=== PATIENT | male | born 1960 | race Two or more races ===

== ENCOUNTER 2022-12-06 10:17 | Inpatient (IN) | payer OTHER ==
[2022-12-06] MEDS ORDERED: ACETAMINOPHEN 1000 MG/100 ML BAG IVPB ONE (11:49)
[2022-12-06] MEDS ORDERED: methylPREDNISolone NA SUCC 125 MG/2 ML VIAL IVPUSH ONE (11:50)
[2022-12-06] MEDS ORDERED: ALBUTEROL SO4 2.5/IPRATROPIUM 0.5 INH SOL 3 ML VIAL.NEB. NEB ONE (12:06)
[2022-12-06] MEDS ORDERED: ACETAMINOPHEN INJECTION 100 ML IVPB ONE (12:06)
[2022-12-06] MEDS ORDERED: methylPREDNISolone NA SUCC 125 MG/2 ML VIAL ONE (12:07)
[2022-12-06] MEDS: ALBUTEROL SO4 2.5/IPRATROPIUM 0.5 INH SOL 3 ML VIAL.NEB. NEB SCH (12:23)
[2022-12-06 12:37] LABS: VENOUS BASE EXCESS -1.1 mmol/L (-2-2); VENOUS O2 SATURATION 40.7 % (70-80); VENOUS PH 7.37 (7.310-7.410)
[2022-12-06 12:39] LABS: BASO % 0.9 % (0-2.0); EOS % 3.9 % (0-4.5); HEMATOCRIT 47.3 % (35.4-49); HEMOGLOBIN 16.1 GM/dL (11.7-16.9); MCHC 34.2 g/dl (32.0-35.9); MEAN CELL VOLUME 90.8 fl (80-96); MEAN PLT VOLUME 7.8 fl (7.5-11.1); MONO % 8.5 % (3.8-10.2); NEUT % 50.7 % (42.8-82.8); PLATELET COUNT 213 10^3/uL (134-434); RDW 13.4 % (11.9-15.9); WHITE BLOOD COUNT 4.8 K/mm3 (4.0-10.0)
[2022-12-06 12:46] LABS: INR 1.25 (0.83-1.09); PROTHROMBIN TIME (PATIENT) 14.5 SEC (9.7-13.0)
[2022-12-06 12:48] LABS: ACTIVATED PTT 30.7 SECONDS (25.2-36.5)
[2022-12-06 12:57] LABS: POTASSIUM 5.3 mmol/L (3.5-5.1)
[2022-12-06 12:59] LABS: CALCIUM 8.5 mg/dL (8.5-10.1)
[2022-12-06 13:00] LABS: BLOOD UREA NITROGEN 13.5 mg/dL (7-18)
[2022-12-06 13:03] LABS: CREATININE 0.8 mg/dL (0.55-1.3)
[2022-12-06 13:04] LABS: BILIRUBIN,TOTAL 0.7 mg/dL (0.2-1); TOT PROT 9.4 g/dl (6.4-8.2)
[2022-12-06 13:07] LABS: N-TERMINAL BNP 235.7 pg/ml (5-125)
[2022-12-06] MEDS ORDERED: morphine CARPU-JECT 4 MG/1 ML DISP.SYRIN IVPUSH ONE (15:35)
[2022-12-06] MEDS ORDERED: morphine SULFATE 4 MG/ML VIAL ONE (15:41)
[2022-12-06 16:54] LABS: URINE APPEARANCE CLEAR; URINE BILIRUBIN NEGATIVE (NEGATIVE); URINE COLOR DK YELLOW; URINE GLUCOSE (UA) NEGATIVE (NEGATIVE); URINE KETONE 40 mg/dl (NEGATIVE)
[2022-12-06 16:55] LABS: HYALINE CASTS 0.37 /uL (0-3.1); PH,URINE 5.5 (5.0-8.0); URINE BACTERIA 1.9 /uL (0-1359); URINE LEUK ESTERASE NEGATIVE (NEGATIVE); URINE NITRITE NEGATIVE (NEGATIVE); URINE PROTEIN 30 (NEGATIVE); URINE RBC 20.7 /uL (0-23.9); URINE WBC 6.7 /uL (0-25.8)
[2022-12-06] MEDS ORDERED: morphine CARPU-JECT 2 MG/1 ML DISP.SYRIN IVPUSH ONE (19:16)
[2022-12-06] MEDS ORDERED: ALBUTEROL SO4 2.5/IPRATROPIUM 0.5 INH SOL 3 ML VIAL.NEB. NEB PRN (22:28)
[2022-12-06] MEDS ORDERED: ALBUTEROL SO4 2.5/IPRATROPIUM 0.5 INH SOL 3 ML VIAL.NEB. NEB SCH (22:30)
[2022-12-06 23:59] LABS: POTASSIUM 4.2 mmol/L (3.5-5.1)
[2022-12-07] LABS: BLOOD UREA NITROGEN 16.2 mg/dL (7-18); CALCIUM 8.5 mg/dL (8.5-10.1)
[2022-12-07 00:04] LABS: CREATININE 0.9 mg/dL (0.55-1.3)
[2022-12-07 00:08] LABS: N-TERMINAL BNP 353.2 pg/ml (5-125)
[2022-12-07] MEDS ORDERED: methylPREDNISolone NA SUCC 40 MG/1 ML VIAL IVPUSH SCH (02:00)
[2022-12-07] MEDS: NICOTINE 14 MG/24 HOURS TOPICAL PATCH TD SCH (09:16)
[2022-12-07 09:31] LABS: BASO % 0.1 % (0-2.0); HEMATOCRIT 42.2 % (35.4-49); HEMOGLOBIN 14.3 GM/dL (11.7-16.9); LYMPH % 9.6 % (8-40); MCH 30.8 pg (25.7-33.7); MEAN CELL VOLUME 90.5 fl (80-96); MEAN PLT VOLUME 8.1 fl (7.5-11.1); MONO % 4.3 % (3.8-10.2); PLATELET COUNT 228 10^3/uL (134-434); RBC 4.66 M/mm3 (4.00-5.60); RDW 13.3 % (11.9-15.9)
[2022-12-07 10:26] LABS: POTASSIUM 4.6 mmol/L (3.5-5.1)
[2022-12-07 10:28] LABS: CALCIUM 8.8 mg/dL (8.5-10.1)
[2022-12-07 10:29] LABS: ALBUMIN 2.7 g/dl (3.4-5.0); BLOOD UREA NITROGEN 17.8 mg/dL (7-18); MAGNESIUM 2.2 mg/dL (1.8-2.4)
[2022-12-07 10:32] LABS: CREATININE 0.7 mg/dL (0.55-1.3); PHOSPHOROUS 3.4 mg/dL (2.5-4.9)
[2022-12-07 10:33] LABS: BILIRUBIN,TOTAL 0.4 mg/dL (0.2-1)
[2022-12-07 10:34] LABS: CHOLESTEROL 156 mg/dL (50-200); TOT PROT 8.3 g/dl (6.4-8.2)
[2022-12-07 10:35] LABS: LDL CHOLESTEROL (ONLY SJRH) 101 mg/dL (5-100)
[2022-12-07 10:37] LABS: HDL CHOLESTEROL 40 mg/dL (40-60)
[2022-12-07] MEDS: LIDOCAINE 5% TOPICAL PATCH TP SCH (18:45)
[2022-12-07] MEDS: LIDOCAINE PATCH REMOVAL MC SCH (22:10)
[2022-12-08 08:44] LABS: POTASSIUM 4.4 mmol/L (3.5-5.1)
[2022-12-08 08:47] LABS: CALCIUM 8.3 mg/dL (8.5-10.1)
[2022-12-08 08:51] LABS: CREATININE 0.8 mg/dL (0.55-1.3)
[2022-12-08 09:05] LABS: BASO % 0.4 % (0-2.0); EOS % 1.5 % (0-4.5); HEMATOCRIT 38.6 % (35.4-49); HEMOGLOBIN 13.8 GM/dL (11.7-16.9); LYMPH % 31.9 % (8-40); MCH 32.3 pg (25.7-33.7); MCHC 35.7 g/dl (32.0-35.9); MEAN CELL VOLUME 90.3 fl (80-96); MEAN PLT VOLUME 7.8 fl (7.5-11.1); NEUT % 59.2 % (42.8-82.8); PLATELET COUNT 195 10^3/uL (134-434); RBC 4.27 M/mm3 (4.00-5.60); RDW 13.6 % (11.9-15.9); WHITE BLOOD COUNT 8.2 K/mm3 (4.0-10.0)
[2022-12-08] MEDS: NICOTINE 14 MG/24 HOURS TOPICAL PATCH TD SCH (09:09)
[2022-12-08] MEDS: LIDOCAINE 5% TOPICAL PATCH TP SCH (09:10)
[2022-12-08] MEDS: ACETAMINOPHEN 325 MG TABLET (FP) PO SCH ×2 (11:28→21:04)
[2022-12-08] MEDS: oxyCODONE HCL 5 MG TABLET PO SCH ×2 (11:28→21:03)
[2022-12-08 14:42] VITALS: BMI 23.9
[2022-12-08] MEDS ORDERED: LIDOCAINE 5% TOPICAL PATCH TP SCH (18:15)
[2022-12-08] MEDS: LIDOCAINE PATCH REMOVAL MC SCH (22:27)
[2022-12-09] MEDS: LIDOCAINE 5% TOPICAL PATCH TP SCH (09:44)
[2022-12-09] MEDS: NICOTINE 14 MG/24 HOURS TOPICAL PATCH TD SCH (09:44)
[2022-12-09] MEDS: ACETAMINOPHEN 325 MG TABLET (FP) PO SCH ×2 (09:44→21:42)
[2022-12-09] MEDS: oxyCODONE HCL 5 MG TABLET PO SCH ×2 (09:44→21:43)
[2022-12-10] MEDS: LIDOCAINE PATCH REMOVAL MC SCH ×2 (02:03→21:11)
[2022-12-10] MEDS: oxyCODONE HCL 5 MG TABLET PO SCH ×2 (09:30→21:10)
[2022-12-10] MEDS: ACETAMINOPHEN 325 MG TABLET (FP) PO SCH ×2 (09:30→21:11)
[2022-12-10] MEDS: LIDOCAINE 5% TOPICAL PATCH TP SCH (09:30)
[2022-12-10] MEDS: NICOTINE 14 MG/24 HOURS TOPICAL PATCH TD SCH (09:30)
[2022-12-10] MEDS: ENOXAPARIN NA (PORCINE) 40 MG/0.4 ML DISP.SYRIN SQ SCH (17:08)
[2022-12-10] MEDS ORDERED: morphine CARPU-JECT 2 MG/1 ML DISP.SYRIN IM PRN (19:13)
[2022-12-11] MEDS: oxyCODONE HCL 5 MG TABLET PO SCH ×2 (09:47→23:09)
[2022-12-11] MEDS: ACETAMINOPHEN 325 MG TABLET (FP) PO SCH ×2 (09:47→23:03)
[2022-12-11] MEDS: ENOXAPARIN NA (PORCINE) 40 MG/0.4 ML DISP.SYRIN SQ SCH (09:48)
[2022-12-11] MEDS: NICOTINE 14 MG/24 HOURS TOPICAL PATCH TD SCH (09:48)
[2022-12-11] MEDS: LIDOCAINE 5% TOPICAL PATCH TP SCH (09:55)
[2022-12-11] MEDS ORDERED: oxyCODONE HCL 5 MG TABLET PO ONE (22:55)
[2022-12-11] MEDS: LIDOCAINE PATCH REMOVAL MC SCH (23:08)
[2022-12-12] MEDS: ACETAMINOPHEN 325 MG TABLET (FP) PO SCH ×2 (09:13→22:03)
[2022-12-12] MEDS: ENOXAPARIN NA (PORCINE) 40 MG/0.4 ML DISP.SYRIN SQ SCH (09:13)
[2022-12-12] MEDS: oxyCODONE HCL 5 MG TABLET PO SCH ×2 (09:14→22:03)
[2022-12-12] MEDS: LIDOCAINE 5% TOPICAL PATCH TP SCH (09:17)
[2022-12-12] MEDS: NICOTINE 14 MG/24 HOURS TOPICAL PATCH TD SCH (09:17)
[2022-12-12] MEDS ORDERED: CEFTRIAXONE 1 GM in DEXTROSE 5%-WATER - 50 ML IVPB SCH (11:30)
[2022-12-12] MEDS ORDERED: PROPOFOL 20 ML ONE ×2 (12:05→14:38)
[2022-12-12] MEDS ORDERED: MIDAZOLAM HCL 2 MG/2 ML SINGLE DOSE VIAL ONE (12:05)
[2022-12-12] MEDS ORDERED: LIDOCAINE HCL/PF 2% SDV 5ML VIAL ONE (12:05)
[2022-12-12] MEDS ORDERED: SUCCINYLCHOLINE CHLORIDE 200 MG/10 ML SYRINGE ONE (12:08)
[2022-12-12] MEDS ORDERED: ROCURONIUM BROMIDE 50 MG/5 ML SYRINGE ONE ×2 (12:08→14:19)
[2022-12-12] MEDS ORDERED: BUPIVACAINE HCL/PF 0.25% (2.5MG/ML) 10 ML VIAL ONE ×2 (12:10→13:37)
[2022-12-12] MEDS ORDERED: ACETAMINOPHEN INJECTION 100 ML IVPB ONE (12:11)
[2022-12-12] MEDS ORDERED: BUPIVACAINE LIPOSOME/PF (EXPAREL) 266 MG/20 ML VIAL ONE (12:11)
[2022-12-12] MEDS ORDERED: DEXMEDETOMIDINE HCL 200 MCG/2 ML IVPB ONE (12:12)
[2022-12-12] MEDS ORDERED: ceFAZolin SODIUM 1 GM VIAL IVPB ONE (13:25)
[2022-12-12] MEDS ORDERED: DEXAMETHASONE SOD PHOSPHATE 4 MG/1 ML VIAL ONE (13:40)
[2022-12-12] MEDS ORDERED: ONDANSETRON 4 MG/2 ML VIAL ONE (13:40)
[2022-12-12] MEDS ORDERED: SUGAMMADEX SODIUM 200 MG/2 ML VIAL ONE (14:18)
[2022-12-12] MEDS ORDERED: BUPIVACAINE HCL/PF 0.25% (2.5MG/ML) 10 ML VIAL IJ ONE (14:21)
[2022-12-12] MEDS ORDERED: ONDANSETRON 4 MG/2 ML VIAL IVPUSH PRN (15:24)
[2022-12-12] MEDS ORDERED: ALBUTEROL SO4 2.5/IPRATROPIUM 0.5 INH SOL 3 ML VIAL.NEB. NEB PRN (15:50)
[2022-12-12] MEDS: LACTATED RINGERS SOLUTION 1,000 ML IV SCH (16:49)
[2022-12-12] MEDS: MUPIROCIN 2% TOPICAL OINTMENT FOR DECOLONIZATION NS SCH (22:02)
[2022-12-12] MEDS: LIDOCAINE PATCH REMOVAL MC SCH ×2 (22:04)
[2022-12-12] MEDS: CHLORHEXIDINE GLUCONATE 4% CLEANSER FOR DECOLONIZATION TP SCH (22:04)
[2022-12-13] MEDS: oxyCODONE HCL 5 MG TABLET PO PRN ×3 (02:32→17:34)
[2022-12-13] MEDS: INSULIN SLIDING SCALE (NOVOLOG) 1 VIAL SQ SCH ×4 (06:19→21:19)
[2022-12-13 07:44] LABS: BASO % 0.1 % (0-2.0); EOS % 0.1 % (0-4.5); HEMATOCRIT 35.2 % (35.4-49); LYMPH % 9.7 % (8-40); MCH 31.1 pg (25.7-33.7); MEAN CELL VOLUME 91.5 fl (80-96); MEAN PLT VOLUME 8.1 fl (7.5-11.1); NEUT % 84.1 % (42.8-82.8); PLATELET COUNT 177 10^3/uL (134-434); RBC 3.85 M/mm3 (4.00-5.60); RDW 13.3 % (11.9-15.9); WHITE BLOOD COUNT 11.4 K/mm3 (4.0-10.0)
[2022-12-13 07:53] LABS: INR 1.26 (0.83-1.09); PROTHROMBIN TIME (PATIENT) 14.6 SEC (9.7-13.0)
[2022-12-13 08:09] LABS: CALCIUM 8.3 mg/dL (8.5-10.1)
[2022-12-13 08:10] LABS: BLOOD UREA NITROGEN 19.7 mg/dL (7-18); MAGNESIUM 1.9 mg/dL (1.8-2.4)
[2022-12-13 08:12] LABS: CREATININE 0.7 mg/dL (0.55-1.3); PHOSPHOROUS 2.3 mg/dL (2.5-4.9)
[2022-12-13] MEDS: ACETAMINOPHEN 325 MG TABLET (FP) PO SCH ×2 (09:06→21:17)
[2022-12-13] MEDS: NAPH,MB-DB/K PH,MBDB POWDER PACKET PO SCH ×3 (09:08→21:18)
[2022-12-13] MEDS: oxyCODONE HCL 5 MG TABLET PO SCH ×2 (09:08→21:15)
[2022-12-13] MEDS: GLECAPREVIR PO SCH (09:09)
[2022-12-13] MEDS: PIBRENTASVIR PO SCH (09:09)
[2022-12-13] MEDS: LACTATED RINGERS SOLUTION 1,000 ML IV SCH ×3 (09:16→19:49)
[2022-12-13] MEDS: LIDOCAINE 5% TOPICAL PATCH TP SCH (09:17)
[2022-12-13] MEDS: ENOXAPARIN NA (PORCINE) 40 MG/0.4 ML DISP.SYRIN SQ SCH (09:18)
[2022-12-13] MEDS: NICOTINE 14 MG/24 HOURS TOPICAL PATCH TD SCH (09:18)
[2022-12-13] MEDS ORDERED: CEFTRIAXONE 1 GM in DEXTROSE 5%-WATER - 50 ML IVPB SCH (10:00)
[2022-12-13] MEDS: MUPIROCIN 2% TOPICAL OINTMENT FOR DECOLONIZATION NS SCH ×2 (11:53→21:18)
[2022-12-13] MEDS: CHLORHEXIDINE GLUCONATE 4% CLEANSER FOR DECOLONIZATION TP SCH (21:18)
[2022-12-13] MEDS: LIDOCAINE PATCH REMOVAL MC SCH ×2 (21:19)
[2022-12-14] MEDS: oxyCODONE HCL 5 MG TABLET PO PRN ×3 (03:08→19:34)
[2022-12-14] MEDS: LACTATED RINGERS SOLUTION 1,000 ML IV SCH (03:44)
[2022-12-14] MEDS: INSULIN SLIDING SCALE (NOVOLOG) 1 VIAL SQ SCH ×3 (06:23→17:36)
[2022-12-14] MEDS: CEFTRIAXONE 2 GM in DEXTROSE 5%-WATER 100 ML IVPB SCH (09:25)
[2022-12-14] MEDS: LIDOCAINE 5% TOPICAL PATCH TP SCH (09:26)
[2022-12-14] MEDS: ENOXAPARIN NA (PORCINE) 40 MG/0.4 ML DISP.SYRIN SQ SCH (09:26)
[2022-12-14] MEDS: MUPIROCIN 2% TOPICAL OINTMENT FOR DECOLONIZATION NS SCH ×2 (09:27→22:27)
[2022-12-14] MEDS: NICOTINE 14 MG/24 HOURS TOPICAL PATCH TD SCH (09:27)
[2022-12-14] MEDS: GLECAPREVIR PO SCH (10:13)
[2022-12-14] MEDS: PIBRENTASVIR PO SCH (10:13)
[2022-12-14] MEDS: oxyCODONE HCL 5 MG TABLET PO SCH ×2 (12:12→22:28)
[2022-12-14] MEDS: ACETAMINOPHEN 325 MG TABLET (FP) PO SCH ×2 (12:13→22:27)
[2022-12-14] MEDS ORDERED: SENNOSIDES 8.6MG TABLET (FP) PO PRN (14:07)
[2022-12-14] MEDS: DOCUSATE SODIUM 100 MG CAPSULE (FP) PO SCH ×2 (16:17→22:27)
[2022-12-14] MEDS: CHLORHEXIDINE GLUCONATE 4% CLEANSER FOR DECOLONIZATION TP SCH (22:28)
[2022-12-14] MEDS: LIDOCAINE PATCH REMOVAL MC SCH (22:28)
[2022-12-15] MEDS: oxyCODONE HCL 5 MG TABLET PO PRN ×3 (05:44→09:17)
[2022-12-15] MEDS: DOCUSATE SODIUM 100 MG CAPSULE (FP) PO SCH ×3 (05:45→21:35)
[2022-12-15 06:57] LABS: HEMATOCRIT 39.1 % (35.4-49); HEMOGLOBIN 13.7 GM/dL (11.7-16.9); MCH 31.7 pg (25.7-33.7); MCHC 35.2 g/dl (32.0-35.9); MEAN CELL VOLUME 90.1 fl (80-96); MEAN PLT VOLUME 7.7 fl (7.5-11.1); PLATELET COUNT 199 10^3/uL (134-434); RBC 4.34 M/mm3 (4.00-5.60); RDW 13.6 % (11.9-15.9); WHITE BLOOD COUNT 6.4 K/mm3 (4.0-10.0)
[2022-12-15 07:06] LABS: INR 1.17 (0.83-1.09); PROTHROMBIN TIME (PATIENT) 13.6 SEC (9.7-13.0)
[2022-12-15 07:19] LABS: POTASSIUM 4.4 mmol/L (3.5-5.1)
[2022-12-15 07:23] LABS: CALCIUM 8.2 mg/dL (8.5-10.1)
[2022-12-15 07:25] LABS: BLOOD UREA NITROGEN 8.9 mg/dL (7-18); MAGNESIUM 1.9 mg/dL (1.8-2.4)
[2022-12-15 07:27] LABS: CREATININE 0.6 mg/dL (0.55-1.3); PHOSPHOROUS 3.8 mg/dL (2.5-4.9)
[2022-12-15] MEDS: LIDOCAINE 5% TOPICAL PATCH TP SCH (09:11)
[2022-12-15] MEDS: MUPIROCIN 2% TOPICAL OINTMENT FOR DECOLONIZATION NS SCH ×2 (09:11→21:35)
[2022-12-15] MEDS: PIBRENTASVIR PO SCH (09:11)
[2022-12-15] MEDS: GLECAPREVIR PO SCH (09:11)
[2022-12-15] MEDS: ENOXAPARIN NA (PORCINE) 40 MG/0.4 ML DISP.SYRIN SQ SCH (09:12)
[2022-12-15] MEDS: CEFTRIAXONE 2 GM in DEXTROSE 5%-WATER 100 ML IVPB SCH (09:12)
[2022-12-15] MEDS: NICOTINE 14 MG/24 HOURS TOPICAL PATCH TD SCH (09:12)
[2022-12-15] MEDS: ACETAMINOPHEN 325 MG TABLET (FP) PO SCH ×2 (09:13→21:08)
[2022-12-15] MEDS: oxyCODONE HCL 5 MG TABLET PO SCH ×3 (09:18→22:10)
[2022-12-15] MEDS: CHLORHEXIDINE GLUCONATE 4% CLEANSER FOR DECOLONIZATION TP SCH (21:35)
[2022-12-15] MEDS: LIDOCAINE PATCH REMOVAL MC SCH (21:36)
[2022-12-16] MEDS: oxyCODONE HCL 5 MG TABLET PO SCH ×4 (02:31→22:32)
[2022-12-16] MEDS: DOCUSATE SODIUM 100 MG CAPSULE (FP) PO SCH ×3 (06:45→22:34)
[2022-12-16] MEDS: MUPIROCIN 2% TOPICAL OINTMENT FOR DECOLONIZATION NS SCH ×2 (09:36→22:34)
[2022-12-16] MEDS: ENOXAPARIN NA (PORCINE) 40 MG/0.4 ML DISP.SYRIN SQ SCH (09:37)
[2022-12-16] MEDS: GLECAPREVIR PO SCH (09:37)
[2022-12-16] MEDS: LIDOCAINE 5% TOPICAL PATCH TP SCH (09:37)
[2022-12-16] MEDS: CEFTRIAXONE 2 GM in DEXTROSE 5%-WATER 100 ML IVPB SCH (09:37)
[2022-12-16] MEDS: NICOTINE 14 MG/24 HOURS TOPICAL PATCH TD SCH (09:37)
[2022-12-16] MEDS: PIBRENTASVIR PO SCH (09:37)
[2022-12-16] MEDS: ACETAMINOPHEN 325 MG TABLET (FP) PO SCH ×2 (09:38→22:33)
[2022-12-16 13:52] LABS: HEMATOCRIT 42.2 % (35.4-49); HEMOGLOBIN 14.7 GM/dL (11.7-16.9); MCH 31.6 pg (25.7-33.7); MEAN CELL VOLUME 90.4 fl (80-96); MEAN PLT VOLUME 7.7 fl (7.5-11.1); PLATELET COUNT 233 10^3/uL (134-434); RBC 4.67 M/mm3 (4.00-5.60); RDW 13.5 % (11.9-15.9); WHITE BLOOD COUNT 7.4 K/mm3 (4.0-10.0)
[2022-12-16 14:09] LABS: POTASSIUM 4.4 mmol/L (3.5-5.1)
[2022-12-16 14:11] LABS: ALBUMIN 2.5 g/dl (3.4-5.0); BLOOD UREA NITROGEN 10.9 mg/dL (7-18); CALCIUM 8.8 mg/dL (8.5-10.1)
[2022-12-16 14:14] LABS: CREATININE 0.6 mg/dL (0.55-1.3)
[2022-12-16 14:16] LABS: BILIRUBIN,TOTAL 0.4 mg/dL (0.2-1); TOT PROT 7.8 g/dl (6.4-8.2)
[2022-12-16] MEDS: LIDOCAINE PATCH REMOVAL MC SCH (22:34)
[2022-12-16] MEDS: CHLORHEXIDINE GLUCONATE 4% CLEANSER FOR DECOLONIZATION TP SCH (22:34)
[2022-12-17] MEDS: oxyCODONE HCL 5 MG TABLET PO SCH ×4 (03:46→21:18)
[2022-12-17] MEDS: DOCUSATE SODIUM 100 MG CAPSULE (FP) PO SCH ×3 (07:39→21:19)
[2022-12-17] MEDS: ACETAMINOPHEN 325 MG TABLET (FP) PO SCH ×2 (09:33→21:19)
[2022-12-17] MEDS: LIDOCAINE 5% TOPICAL PATCH TP SCH (09:35)
[2022-12-17] MEDS: ENOXAPARIN NA (PORCINE) 40 MG/0.4 ML DISP.SYRIN SQ SCH (09:35)
[2022-12-17] MEDS: CEFTRIAXONE 2 GM in DEXTROSE 5%-WATER 100 ML IVPB SCH (09:36)
[2022-12-17] MEDS: NICOTINE 14 MG/24 HOURS TOPICAL PATCH TD SCH (09:36)
[2022-12-17] MEDS: GLECAPREVIR PO SCH (09:39)
[2022-12-17] MEDS: PIBRENTASVIR PO SCH (09:39)
[2022-12-17] MEDS: MUPIROCIN 2% TOPICAL OINTMENT FOR DECOLONIZATION NS SCH (09:44)
[2022-12-17] MEDS: LIDOCAINE PATCH REMOVAL MC SCH (21:19)
[2022-12-17] MEDS: CHLORHEXIDINE GLUCONATE 4% CLEANSER FOR DECOLONIZATION TP SCH (21:19)
[2022-12-18] MEDS: oxyCODONE HCL 5 MG TABLET PO SCH ×4 (03:49→21:06)
[2022-12-18] MEDS: DOCUSATE SODIUM 100 MG CAPSULE (FP) PO SCH ×3 (06:23→21:14)
[2022-12-18] MEDS: CEFTRIAXONE 2 GM in DEXTROSE 5%-WATER 100 ML IVPB SCH (09:49)
[2022-12-18] MEDS: ENOXAPARIN NA (PORCINE) 40 MG/0.4 ML DISP.SYRIN SQ SCH (09:49)
[2022-12-18] MEDS: ACETAMINOPHEN 325 MG TABLET (FP) PO SCH ×2 (09:50→21:05)
[2022-12-18] MEDS: LIDOCAINE 5% TOPICAL PATCH TP SCH (09:50)
[2022-12-18] MEDS: PIBRENTASVIR PO SCH (09:51)
[2022-12-18] MEDS: GLECAPREVIR PO SCH (09:51)
[2022-12-18] MEDS: NICOTINE 14 MG/24 HOURS TOPICAL PATCH TD SCH (09:52)
[2022-12-18] MEDS: CHLORHEXIDINE GLUCONATE 4% CLEANSER FOR DECOLONIZATION TP SCH (21:06)
[2022-12-18] MEDS: LIDOCAINE PATCH REMOVAL MC SCH (21:06)
[2022-12-18] MEDS ORDERED: SENNOSIDES 8.6MG TABLET (FP) PO PRN (23:55)
[2022-12-19] MEDS: oxyCODONE HCL 5 MG TABLET PO SCH ×4 (03:22→21:16)
[2022-12-19] MEDS: DOCUSATE SODIUM 100 MG CAPSULE (FP) PO SCH ×3 (06:24→21:16)
[2022-12-19 08:14] LABS: BASO % 0.9 % (0-2.0); EOS % 5.9 % (0-4.5); HEMATOCRIT 37.4 % (35.4-49); LYMPH % 28.5 % (8-40); MCH 31.3 pg (25.7-33.7); MCHC 34.9 g/dl (32.0-35.9); MEAN CELL VOLUME 89.8 fl (80-96); MEAN PLT VOLUME 7.3 fl (7.5-11.1); MONO % 9.9 % (3.8-10.2); NEUT % 54.8 % (42.8-82.8); PLATELET COUNT 226 10^3/uL (134-434); RBC 4.16 M/mm3 (4.00-5.60); RDW 13.8 % (11.9-15.9); WHITE BLOOD COUNT 5.9 K/mm3 (4.0-10.0)
[2022-12-19 08:29] LABS: POTASSIUM 4.7 mmol/L (3.5-5.1)
[2022-12-19 08:31] LABS: ALBUMIN 2.2 g/dl (3.4-5.0); BLOOD UREA NITROGEN 15.7 mg/dL (7-18); CALCIUM 8.1 mg/dL (8.5-10.1); MAGNESIUM 1.8 mg/dL (1.8-2.4)
[2022-12-19 08:34] LABS: CREATININE 0.7 mg/dL (0.55-1.3); PHOSPHOROUS 3.8 mg/dL (2.5-4.9)
[2022-12-19 08:36] LABS: BILIRUBIN,TOTAL 0.3 mg/dL (0.2-1); TOT PROT 6.8 g/dl (6.4-8.2)
[2022-12-19] MEDS: ACETAMINOPHEN 325 MG TABLET (FP) PO SCH ×2 (09:52→21:18)
[2022-12-19] MEDS: NICOTINE 14 MG/24 HOURS TOPICAL PATCH TD SCH (09:52)
[2022-12-19] MEDS: ENOXAPARIN NA (PORCINE) 40 MG/0.4 ML DISP.SYRIN SQ SCH (09:52)
[2022-12-19] MEDS: CEFTRIAXONE 2 GM in DEXTROSE 5%-WATER 100 ML IVPB SCH (09:55)
[2022-12-19] MEDS: PATIENT'S OWN MEDICATION (NON-FORMULARY) (Glecaprevir/Pibrentasvir [Mavyret 100-40 Mg Tabl PO SCH (09:55)
[2022-12-19] MEDS ORDERED: CHLORHEXIDINE GLUCONATE 4% CLEANSER FOR DECOLONIZATION TP SCH (22:00)
[2022-12-20] MEDS: oxyCODONE HCL 5 MG TABLET PO PRN ×3 (04:48→22:34)
[2022-12-20] MEDS: ACETAMINOPHEN 325 MG TABLET (FP) PO PRN (05:32)
[2022-12-20] MEDS: DOCUSATE SODIUM 100 MG CAPSULE (FP) PO SCH ×3 (05:33→22:35)
[2022-12-20] MEDS: CEFTRIAXONE 2 GM in DEXTROSE 5%-WATER 100 ML IVPB SCH (09:39)
[2022-12-20] MEDS: NICOTINE 14 MG/24 HOURS TOPICAL PATCH TD SCH (09:40)
[2022-12-20] MEDS: ENOXAPARIN NA (PORCINE) 40 MG/0.4 ML DISP.SYRIN SQ SCH (09:40)
[2022-12-20] MEDS ORDERED: PATIENT'S OWN MEDICATION (NON-FORMULARY) (Glecaprevir/Pibrentasvir [Mavyret 100-40 Mg Tabl PO SCH (13:14)
[2022-12-20] MEDS: PATIENT'S OWN MEDICATION (NON-FORMULARY) (Glecaprevir/Pibrentasvir [Mavyret 100-40 Mg Tabl PO SCH ×2 (14:11)
[2022-12-21] MEDS: ACETAMINOPHEN 325 MG TABLET (FP) PO PRN ×2 (02:56→18:47)
[2022-12-21] MEDS: DOCUSATE SODIUM 100 MG CAPSULE (FP) PO SCH ×4 (06:29→21:14)
[2022-12-21] MEDS: oxyCODONE HCL 5 MG TABLET PO PRN ×3 (07:16→18:48)
[2022-12-21] MEDS: PATIENT'S OWN MEDICATION (NON-FORMULARY) (Glecaprevir/Pibrentasvir [Mavyret 100-40 Mg Tabl PO SCH (10:23)
[2022-12-21] MEDS: ENOXAPARIN NA (PORCINE) 40 MG/0.4 ML DISP.SYRIN SQ SCH (10:24)
[2022-12-21] MEDS: NICOTINE 14 MG/24 HOURS TOPICAL PATCH TD SCH (10:24)
[2022-12-22] MEDS: oxyCODONE HCL 5 MG TABLET PO PRN ×4 (02:24→22:24)
[2022-12-22] MEDS: DOCUSATE SODIUM 100 MG CAPSULE (FP) PO SCH ×3 (06:23→22:25)
[2022-12-22] MEDS: ACETAMINOPHEN 325 MG TABLET (FP) PO PRN (07:35)
[2022-12-22] MEDS: NICOTINE 14 MG/24 HOURS TOPICAL PATCH TD SCH (10:22)
[2022-12-22] MEDS: ENOXAPARIN NA (PORCINE) 40 MG/0.4 ML DISP.SYRIN SQ SCH (10:22)
[2022-12-22] MEDS: PATIENT'S OWN MEDICATION (NON-FORMULARY) (Glecaprevir/Pibrentasvir [Mavyret 100-40 Mg Tabl PO SCH (10:23)
[2022-12-22] MEDS ORDERED: INSULIN (NOVOLOG) ASPART 100 UNITS/ML 10ML VIAL ONE (11:40)
[2022-12-23] MEDS: oxyCODONE HCL 5 MG TABLET PO PRN ×4 (02:50→18:54)
[2022-12-23] MEDS: DOCUSATE SODIUM 100 MG CAPSULE (FP) PO SCH ×3 (07:07→21:22)
[2022-12-23] MEDS: NICOTINE 14 MG/24 HOURS TOPICAL PATCH TD SCH (09:09)
[2022-12-23] MEDS: PATIENT'S OWN MEDICATION (NON-FORMULARY) (Glecaprevir/Pibrentasvir [Mavyret 100-40 Mg Tabl PO SCH (09:09)
[2022-12-23] MEDS: ENOXAPARIN NA (PORCINE) 40 MG/0.4 ML DISP.SYRIN SQ SCH (09:09)
[2022-12-24] MEDS: oxyCODONE HCL 5 MG TABLET PO PRN ×5 (04:36→20:19)
[2022-12-24] MEDS: DOCUSATE SODIUM 100 MG CAPSULE (FP) PO SCH ×3 (06:09→21:51)
[2022-12-24] MEDS: NICOTINE 14 MG/24 HOURS TOPICAL PATCH TD SCH (09:25)
[2022-12-24] MEDS: PATIENT'S OWN MEDICATION (NON-FORMULARY) (Glecaprevir/Pibrentasvir [Mavyret 100-40 Mg Tabl PO SCH (09:26)
[2022-12-24] MEDS: ENOXAPARIN NA (PORCINE) 40 MG/0.4 ML DISP.SYRIN SQ SCH (09:26)
[2022-12-25] MEDS: oxyCODONE HCL 5 MG TABLET PO PRN ×5 (01:35→20:31)
[2022-12-25] MEDS: DOCUSATE SODIUM 100 MG CAPSULE (FP) PO SCH ×3 (06:22→22:09)
[2022-12-25] MEDS: NICOTINE 14 MG/24 HOURS TOPICAL PATCH TD SCH (09:33)
[2022-12-25] MEDS: PATIENT'S OWN MEDICATION (NON-FORMULARY) (Glecaprevir/Pibrentasvir [Mavyret 100-40 Mg Tabl PO SCH (09:33)
[2022-12-25] MEDS: ENOXAPARIN NA (PORCINE) 40 MG/0.4 ML DISP.SYRIN SQ SCH (09:33)
[2022-12-26] MEDS: oxyCODONE HCL 5 MG TABLET PO PRN ×4 (00:18→13:24)
[2022-12-26] MEDS: DOCUSATE SODIUM 100 MG CAPSULE (FP) PO SCH ×2 (05:32→13:24)
[2022-12-26] MEDS: ENOXAPARIN NA (PORCINE) 40 MG/0.4 ML DISP.SYRIN SQ SCH (09:03)
[2022-12-26] MEDS: NICOTINE 14 MG/24 HOURS TOPICAL PATCH TD SCH (09:04)
[2022-12-26] MEDS: PATIENT'S OWN MEDICATION (NON-FORMULARY) (Glecaprevir/Pibrentasvir [Mavyret 100-40 Mg Tabl PO SCH (09:04)
[2022-12-26 15:21] VITALS: BP 116/58; PULSE 95; RESP 20; TEMP 99.3
[2022-12-26] MEDS ORDERED: oxyCODONE HCL 5 MG TABLET PO PRN (15:53)
== END 2022-12-26 18:39 | disposition home health service (06) | DRG 121 ==
LOC: JER 10:17 → JERBED 19:22 → J5S 12-07 01:21 → JICU 12-12 19:41 → J2W 12-14 20:57 → J8W 12-18 23:36
PROVIDERS: ADMIT Internal Medicine; ATTEND Internal Medicine
PROC: 0BBP4ZX Excision of Left Pleura, Percutaneous Endoscopic Approach, Diagnostic (ICD-10-PCS; principal; 2022-12-12 12:30)
PROC: 0W9B40Z Drainage of Left Pleural Cavity with Drainage Device, Percutaneous Endoscopic Approach (ICD-10-PCS; 2022-12-12 12:30)
DX: C34.90 Malignant neoplasm of unspecified part of unspecified bronchus or lung (principal); J91.0 Malignant pleural effusion; J84.9 Interstitial pulmonary disease, unspecified; J94.2 Hemothorax; K76.0 Fatty (change of) liver, not elsewhere classified; K74.60 Unspecified cirrhosis of liver; F17.210 Nicotine dependence, cigarettes, uncomplicated; N20.0 Calculus of kidney; J44.9 Chronic obstructive pulmonary disease, unspecified; F12.90 Cannabis use, unspecified, uncomplicated; R59.0 Localized enlarged lymph nodes; E27.9 Disorder of adrenal gland, unspecified
CPT/HCPCS: 32557; 36415; 36430; 70553-TC; 71045-TC-FY; 71260-TC; 71275-TC; 74177-TC; 80048; 80053; 80061; 81003; 82803; 82962; 83036; 83735; 83880; 84100; 84443; 84484; 85025; 85027; 85610; 85730; 86480; 86850; 86900; 86901; 86922; 87040; 87070; 87075; 87086; 87102; 87116; 87186; 87205; 87206; 87210; 87899; 88108; 88305-TC; 88331-TC; 88341-TC; 93005; 93010; 93306-TC; 94760; 94761; 97116-GP; 97162-GP; 99285-25; A9579; C9803-CS; Q9967; U0003; U0005

== ENCOUNTER 2023-01-30 04:04 | Day surgery (SDC) | payer OTHER ==
[2023-01-28 15:15] VITALS: BMI 26.6
[2023-01-30 13:07] VITALS: RESP 22
[2023-01-30] MEDS ORDERED: LIDOCAINE HCL 1%, 10 MG/ML (10ML VIAL) MDV ONE (13:53)
[2023-01-30] MEDS ORDERED: BUPIVACAINE HCL/PF 0.25% (2.5MG/ML) 10 ML VIAL ONE (16:03)
[2023-01-30] MEDS ORDERED: BUPIVACAINE HCL/PF 0.25% (2.5MG/ML) 10 ML VIAL IJ ONE (16:23)
[2023-01-30 17:43] VITALS: TEMP 98.7
[2023-01-30 17:51] VITALS: BP 120/80; PULSE 92
== END 2023-01-30 17:45 | disposition home or self-care (01) ==
LOC: JASU-SURG 04:04
PROVIDERS: ATTEND Student in an Organized Health Care Education/Training Program
PROC: 0JB60ZZ Excision of Chest Subcutaneous Tissue and Fascia, Open Approach (ICD-10-PCS; principal; 2023-01-30 15:00)
DX: T85.9XXA Unspecified complication of internal prosthetic device, implant and graft, initial encounter (principal); Y82.8 Other medical devices associated with adverse incidents; Y92.9 Unspecified place or not applicable
CPT/HCPCS: 71045-TC-FY